=== PATIENT | female | born 1965 | race Caucasian/White ===

== ENCOUNTER 2019-12-14 18:32 | Inpatient (IN) | payer OTHER ==
[~2019-12-14] VITALS: Ht 162.6 cm; Wt 64.0 kg
[~2019-12-14 18:32] MED LIST: ASPI325 PO; ASPI81CH; CYCL10 PO; HYDACE5 PO; HYDMOR2 PO; HYDPAM50 PO; HYDR1TAB94 PO; IBUP600 PO; IBUP800; NAPR500 PO; NAPR550 PO; OXYACE5T PO; PRED20 PO
[2019-12-14 19:13] LABS: Source, Urine Clean Catch
[2019-12-14 19:24] LABS: Bilirubin, Urine Neg (Neg); Blood, Urine 1+ (Neg); Glucose Qualitative, Urine Neg (Neg); Ketones, Urine Neg (Neg); Leukocyte Esterase, Urine Neg (Neg); Nitrite, Urine Neg (Neg); Protein, Urine 1+ (Neg); Specific Gravity, Urine 1.005 (1.003-1.022); Urobilinogen, Urine NORM (Normal)
[2019-12-14 19:30] LABS: Appearance, Urine Clear (Clear); Color, Urine Pale Yellow (P-Yellow)
[2019-12-14 19:33] LABS: Bacteria Not Seen /hpf; Red Blood Cells, Urine Not Seen /hpf (0-2); Squamous Epithelial Cells Rare /hpf (Few); White Blood Cells, Urine Not Seen /hpf (0-5)
[2019-12-14 19:36] LABS: BASOPHILS ABSOLUTE AUTO 0.04 K/mm3 (0.00-0.23); BASOPHILS PERCENT AUTO 0 % (0-2); EOSINOPHILS PERCENT AUTO 0 % (0-6); Hematocrit 44.5 % (33.0-51.0); Hemoglobin 15.5 g/dL (11.5-16.0); IMMATURE GRAN ABSOLUTE AUTO 0.11 K/mm3 (0.00-0.10); IMMATURE GRAN PERCENT AUTO 1 % (0-1); LYMPHOCYTES ABSOLUTE AUTO 0.92 K/mm3 (0.84-5.20); LYMPHOCYTES PERCENT AUTO 5 % (21-46); MONOCYTES ABSOLUTE AUTO 0.92 K/mm3 (0.16-1.47); MONOCYTES PERCENT AUTO 5 % (4-13); Mean Corpuscular HGB 34.9 pg (26.0-34.0); Mean Corpuscular HGB Conc 34.8 g/dL (31.5-36.5); Mean Corpuscular Volume 100 fL (80-100); Mean Platelet Volume 9.6 fL (9.1-12.4); NEUTROPHILS ABSOLUTE AUTO 15.22 K/mm3 (1.96-9.15); NEUTROPHILS PERCENT AUTO 89 % (41-73); Platelet Count 202 K/mm3 (150-400); RDW Coefficient Variation 13.1 % (11.7-14.2); RDW Standard Deviation 48.8 fL (35.1-46.3); Red Blood Cell Count 4.44 M/mm3 (3.80-5.20); White Blood Cell Count 17.21 K/mm3 (4.00-11.30)
[2019-12-14 19:48] LABS: Alanine Aminotransfer (ALT/SGP 34 U/L (12-78); Albumin, Blood 4.1 g/dL (3.4-5.0); Albumin/Globulin Ratio 0.9 (0.8-1.8); Alk Phos 84 U/L (50-136); Anion Gap 5 mmol/L (6-16); Aspartate Aminotrans (AST/SGOT 23 U/L (12-37); Bilirubin, Total 1.5 mg/dL (0.1-1.0); Blood Urea Nitrogen 8 mg/dL (8-24); CO2, Blood 27 mmol/L (21-32); Calcium, Blood 9.8 mg/dL (8.5-10.1); Chloride, Blood 99 mmol/L (98-108); Globulin, Blood 4.8 g/dL (2.2-4.0); Glomerular Filtration Rate >60 (60-); Glucose, Blood 157 mg/dL (70-99); Potassium, Blood 3.3 mmol/L (3.5-5.5); Sodium, Blood 131 mmol/L (136-145); Total Protein, Blood 8.9 g/dL (6.4-8.2)
[2019-12-14 20:55] LABS: Influenza A Negative (NEGATIVE); Influenza B Negative (NEGATIVE)
--- NOTE | 2019-12-15 13:53 | NUR ---
permision of care was given 12/15/2019 at 1320.
--- NOTE | 2019-12-15 14:47 | NUR ---
SHIFT SUMMARY PT A&OX4, VSS. DAT CLEAR LIQUID SIPS. PAIN MANAGED WITH 25 MCGS FENTANYL. AMBULATION INDEPENDENT IN ROOM, TO BRP. VOIDING WELL. PLAN FOR ABX TREATMENT AT THIS TIME. FRIEND AT BEDSIDE. WILL REPORT TO NEXT RN.
--- NOTE | 2019-12-15 20:52 | NUR ---
PT OUT TO SMOKE AT THIS TIME VIA IND AMBULATION
--- NOTE | 2019-12-16 03:58 | NUR ---
SHIFT SUMMARY NO ACUTE CHANGES THIS SHIFT. ABX/IVF RUNNING PER ORDERS. PAIN MANAGED WITH HEAT, REPOSITIONING, AND PER EMAR. IND IN ROOM. AMBULATED IN HALLWAYS AND OUTSIDE. DENIED SMOKING CESS. EDUCATION. APPEARS TO HAVE SLEPT T/O MOST OF SHIFT. IS TOLERATING ICE/WATER, DENIES N/V. IS CURRENTLY RESTING IN BED WITH CALL LIGHT IN REACH. WILL CONT TO MONITOR AND GIVE REPORT TO ONCOMING RN.
[2019-12-16 05:51] LABS: BASOPHILS ABSOLUTE AUTO 0.03 K/mm3 (0.00-0.23); BASOPHILS PERCENT AUTO 0 % (0-2); EOSINOPHILS ABSOLUTE AUTO 0.07 K/mm3 (0.00-0.68); EOSINOPHILS PERCENT AUTO 1 % (0-6); Hematocrit 37.4 % (33.0-51.0); Hemoglobin 12.6 g/dL (11.5-16.0); IMMATURE GRAN ABSOLUTE AUTO 0.04 K/mm3 (0.00-0.10); IMMATURE GRAN PERCENT AUTO 0 % (0-1); LYMPHOCYTES ABSOLUTE AUTO 1.21 K/mm3 (0.84-5.20); LYMPHOCYTES PERCENT AUTO 11 % (21-46); MONOCYTES ABSOLUTE AUTO 1.05 K/mm3 (0.16-1.47); MONOCYTES PERCENT AUTO 10 % (4-13); Mean Corpuscular HGB 34.4 pg (26.0-34.0); Mean Corpuscular HGB Conc 33.7 g/dL (31.5-36.5); Mean Corpuscular Volume 102 fL (80-100); Mean Platelet Volume 10.1 fL (9.1-12.4); NEUTROPHILS ABSOLUTE AUTO 8.64 K/mm3 (1.96-9.15); NEUTROPHILS PERCENT AUTO 78 % (41-73); Platelet Count 208 K/mm3 (150-400); RDW Coefficient Variation 13.3 % (11.7-14.2); RDW Standard Deviation 50.4 fL (35.1-46.3); Red Blood Cell Count 3.66 M/mm3 (3.80-5.20); White Blood Cell Count 11.04 K/mm3 (4.00-11.30)
[2019-12-16 06:03] LABS: Anion Gap 7 mmol/L (6-16); Blood Urea Nitrogen 7 mg/dL (8-24); Bun/Creatinine Ratio 15.9 (12.0-20.0); CO2, Blood 23 mmol/L (21-32); Calcium, Blood 8.9 mg/dL (8.5-10.1); Chloride, Blood 106 mmol/L (98-108); Creatinine, Blood 0.44 mg/dL (0.40-1.00); Glomerular Filtration Rate >60 (60-); Glucose, Blood 84 mg/dL (70-99); Potassium, Blood 3.1 mmol/L (3.5-5.5); Sodium, Blood 136 mmol/L (136-145)
[2019-12-16] MEDS ORDERED: CIPR500 PO (12:09)
[2019-12-16] MEDS ORDERED: Norco 5-325 Ta1 EACH PO (12:10)
[2019-12-16] MEDS ORDERED: METR500 PO (12:10)
[2019-12-16] MEDS ORDERED: ACET325 PO (16:28)
--- NOTE | 2019-12-16 16:53 | NUR ---
1640 discharged to home
== END 2019-12-16 16:40 | disposition home or self-care (01) | DRG 392 ==
LOC: ER 18:32 → ERHOLD 12-15 00:09 → SURS 12-15 11:49
PROVIDERS: Physician Assistant; ADMIT Surgery
DX: K57.20 Diverticulitis of large intestine with perforation and abscess without bleeding (principal); F17.210 Nicotine dependence, cigarettes, uncomplicated; Z88.0 Allergy status to penicillin; Z88.5 Allergy status to narcotic agent
CPT/HCPCS: 36415; 71046; 74177; 80048; 80053; 81001; 83605; 85025; 87040; 87804; 96365; 96375; 96376; 99285-25; A9270-GY; J0744; J1650; J3010; J7030; Q9967

== ENCOUNTER 2019-12-25 10:08 | Observation (INO) | payer OTHER ==
[~2019-12-25] VITALS: Ht 162.6 cm; Wt 62.1 kg
[~2019-12-25 10:08] MED LIST changes: +ACET325 PO; +CIPR500 PO; +METR500 PO; +Norco 5-325 Ta1 EACH PO
[2019-12-25 11:53] LABS: BASOPHILS ABSOLUTE AUTO 0.05 K/mm3 (0.00-0.23); BASOPHILS PERCENT AUTO 0 % (0-2); EOSINOPHILS ABSOLUTE AUTO 0.11 K/mm3 (0.00-0.68); EOSINOPHILS PERCENT AUTO 1 % (0-6); Hematocrit 43.1 % (33.0-51.0); Hemoglobin 14.6 g/dL (11.5-16.0); IMMATURE GRAN ABSOLUTE AUTO 0.08 K/mm3 (0.00-0.10); IMMATURE GRAN PERCENT AUTO 1 % (0-1); LYMPHOCYTES ABSOLUTE AUTO 1.84 K/mm3 (0.84-5.20); LYMPHOCYTES PERCENT AUTO 16 % (21-46); MONOCYTES ABSOLUTE AUTO 0.73 K/mm3 (0.16-1.47); MONOCYTES PERCENT AUTO 7 % (4-13); Mean Corpuscular HGB 33.4 pg (26.0-34.0); Mean Corpuscular HGB Conc 33.9 g/dL (31.5-36.5); Mean Platelet Volume 9.3 fL (9.1-12.4); NEUTROPHILS ABSOLUTE AUTO 8.41 K/mm3 (1.96-9.15); NEUTROPHILS PERCENT AUTO 75 % (41-73); Platelet Count 416 K/mm3 (150-400); RDW Coefficient Variation 13.4 % (11.7-14.2); RDW Standard Deviation 49.2 fL (35.1-46.3); Red Blood Cell Count 4.37 M/mm3 (3.80-5.20); White Blood Cell Count 11.22 K/mm3 (4.00-11.30)
[2019-12-25 11:54] LABS: Mean Corpuscular Volume 99 fL (80-100)
[2019-12-25 12:07] LABS: International Normalized Ratio 1.11; Prothrombin Time Results 11.8 Sec (9.7-11.5)
[2019-12-25 12:10] LABS: Alanine Aminotransfer (ALT/SGP 38 U/L (12-78); Albumin, Blood 3.3 g/dL (3.4-5.0); Albumin/Globulin Ratio 0.7 (0.8-1.8); Alk Phos 69 U/L (50-136); Anion Gap 4 mmol/L (6-16); Aspartate Aminotrans (AST/SGOT 84 U/L (12-37); Bilirubin, Total 0.3 mg/dL (0.1-1.0); Blood Urea Nitrogen 8 mg/dL (8-24); Bun/Creatinine Ratio 15.7 (12.0-20.0); CO2, Blood 32 mmol/L (21-32); Calcium, Blood 9.5 mg/dL (8.5-10.1); Chloride, Blood 102 mmol/L (98-108); Creatinine, Blood 0.51 mg/dL (0.40-1.00); Globulin, Blood 4.9 g/dL (2.2-4.0); Glomerular Filtration Rate >60 (60-); Glucose, Blood 104 mg/dL (70-99); Potassium, Blood 3.4 mmol/L (3.5-5.5); Sodium, Blood 138 mmol/L (136-145); Total Protein, Blood 8.2 g/dL (6.4-8.2)
--- NOTE | 2019-12-25 15:35 | NUR ---
PATIENT SITTING UP IN BED, USING LAPTOP, VERY AGITATED. EXPRESSED ANGER WITH THE FACT THAT SHE IS "IN THIS HELL HOLE WITH NO VIEW AND I CANT GO OUT AND GET ANY FRESH AIR....I CAME IN AT 10 AND DIDNT GET THIS STUFF TO DRINK UNTIL 1230" [CONTRAST.] INFORMED PATIENT OF CURRENT POLICY RE: PATIENTS OUT TO SMOKE AFTER SPEAKING WITH NURSING BURR FILER (IF PATIENT WISHES TO GO OUT, THEY MUST GO AMA AND IF RETURNING, MUST GO THROUGH ER.) I OFFERED TO OBTAIN ORDER FOR NICOTINE PATCH FOR PATIENT TO WHICH SHE REPLIED "I DONT WANT A F NICOTINE PATCH ! I WANT SOME FRESH AIR. YOU ARE PISSING ME OFF!" AT THIS POINT, I DETERMINED NOT TO PERFORM ADMIT ASSESSMENT. COVERING AND LINING SUPERVISOR AND ADMINISTRATIVE PROGRAM SPECIALIST INFORMED. INSTRUCTED PATIENT TO CALL FOR NEEDS. CT SCHEDULED FOR 1630. CONT TO MONITOR.
[2019-12-25] MEDS ORDERED: CIPR500 PO (17:59)
[2019-12-25] MEDS ORDERED: METR500 PO (18:00)
--- NOTE | 2019-12-25 18:09 | NUR ---
DISCHARGE PT THANKFUL FOR DC. IV REMOVED WNL. SCRIPTS FOR ABX GIVEN. PT STATES UNDERSTANDING AND REASONS TO RETURN TO ED. ESCORTED OUT VIA W/C.
== END 2019-12-25 18:11 | disposition home or self-care (01) ==
LOC: ER 10:08 → SURS 10:10 → ER 14:07 → SURS 14:07
PROVIDERS: Physician Assistant; ADMIT Surgery
DX: N82.3 Fistula of vagina to large intestine (principal); F17.200 Nicotine dependence, unspecified, uncomplicated; Z87.19 Personal history of other diseases of the digestive system; Z88.5 Allergy status to narcotic agent
CPT/HCPCS: 36415; 74177; 80053; 85025; 85610; 86850; 86900; 86901; 99284-25; G0378; Q9967

== ENCOUNTER 2020-03-25 11:29 | Inpatient (IN) | payer BC, OTHER ==
[~2020-03-25] VITALS: Ht 162.6 cm; Wt 67.2 kg
[2020-03-28] MEDS ORDERED: IBUP200 PO (13:54)
--- NOTE | 2020-03-30 06:54 | NUR ---
Ambulatory in Day Surgery History, Chart, Medications and Allergies reviewed before start of procedure.Patient confirms NPO status and agrees with scheduled surgery. Patient reports completing Chlorhexadine shower X2 prior to admission to hospital.Surgical site prepped with 2% Chlorhexidine cloth wipe. Lungs clear T/O to Auscultation. PT PERSONAL CRAFT BAG WILL BE TAKEN TO PACU
--- NOTE | 2020-03-30 13:13 | NUR ---
pt arrived to room 227 from pacu s/p sigmoid coloctomy pt stated pain is severe 100/10 pt denies nausea at this time pt has small amt of sang drainage to lower christian wound vac pt is drowsy oriented to room layout
--- NOTE | 2020-03-30 15:17 | NUR ---
DR JAMES OFFICE CALLED PT HAVING ITCHING FROM [employer] ALSO PAIN IS STILL ELEV KPAD PLACED FOR PAIN MESSAGELEFT
--- NOTE | 2020-03-30 16:56 | NUR ---
PT MACHINIST SWITCHED TO DILAUDID PT STILL A 10/10 PT ALSO ITCHING [address] JAMES ALSO ORDERED IV VALIUM IF THIS IS NOT EFFECTIVE FOR ABD MUSCLE SPASM
--- NOTE | 2020-03-30 17:35 | NUR ---
pt stated pain is a little better with the new medication
--- NOTE | 2020-03-30 19:05 | NUR ---
pt stated she is does not take tylenol due to her hx of dario aneurysm placed as a allergy
[2020-03-31 05:26] LABS: BASOPHILS ABSOLUTE AUTO 0.02 K/mm3 (0.00-0.23); BASOPHILS PERCENT AUTO 0 % (0-2); EOSINOPHILS ABSOLUTE AUTO 0.05 K/mm3 (0.00-0.68); EOSINOPHILS PERCENT AUTO 0 % (0-6); Hematocrit 37.3 % (33.0-51.0); Hemoglobin 12.4 g/dL (11.5-16.0); IMMATURE GRAN ABSOLUTE AUTO 0.11 K/mm3 (0.00-0.10); IMMATURE GRAN PERCENT AUTO 1 % (0-1); LYMPHOCYTES ABSOLUTE AUTO 0.32 K/mm3 (0.84-5.20); LYMPHOCYTES PERCENT AUTO 3 % (21-46); MONOCYTES ABSOLUTE AUTO 0.72 K/mm3 (0.16-1.47); MONOCYTES PERCENT AUTO 6 % (4-13); Mean Corpuscular HGB 34.5 pg (26.0-34.0); Mean Corpuscular HGB Conc 33.2 g/dL (31.5-36.5); Mean Corpuscular Volume 104 fL (80-100); Mean Platelet Volume 9.5 fL (9.1-12.4); NEUTROPHILS ABSOLUTE AUTO 10.35 K/mm3 (1.96-9.15); NEUTROPHILS PERCENT AUTO 89 % (41-73); Platelet Count 177 K/mm3 (150-400); RDW Coefficient Variation 14.9 % (11.7-14.2); RDW Standard Deviation 57.3 fL (35.1-46.3); Red Blood Cell Count 3.59 M/mm3 (3.80-5.20); White Blood Cell Count 11.57 K/mm3 (4.00-11.30)
[2020-03-31 05:43] LABS: Anion Gap 5 mmol/L (6-16); Blood Urea Nitrogen 5 mg/dL (8-24); Bun/Creatinine Ratio 7.7 (12.0-20.0); CO2, Blood 27 mmol/L (21-32); Calcium, Blood 8.1 mg/dL (8.5-10.1); Chloride, Blood 103 mmol/L (98-108); Creatinine, Blood 0.65 mg/dL (0.40-1.00); Glomerular Filtration Rate >60 (60-); Glucose, Blood 102 mg/dL (70-99); Potassium, Blood 3.7 mmol/L (3.5-5.5); Sodium, Blood 135 mmol/L (136-145)
--- NOTE | 2020-03-31 06:15 | NUR ---
SHIFT SUMMARY: SHARON IS POD1 FOR A COLECTOMY. VSS, SHE DID HAVE A LOW GRADE FEVER THIS MORNING. SHE WAS UNDER THE IMPRESSION THAT SHE COULD NOT TAKE TYLENOL D/T THE RECOMMENDATION FROM HER NEUROSURGEON TO AVOID NSAIDS. AFTER SOME THOUGHT, SHE WAS AMENDABLE TO TRYING THE TYLENOL. SHE DENIES N/V. SHE REPORTS THE DILAUDID FAST FOOD ATTENDANT IS KEEPING HER PAIN AT A TOLERABLE LEVEL; NO CONTINUOUS RATE, HANDLE ONLY. SHE REMAINS NPO EXCEPT FOR SIPS AND CHIPS. SHE IS A ONE PERSON ASSIST FOR TRANSFERRING TO THE CHAIR. MEPILEX WAS APPLIED TO HER COCCYX D/T BLANCHABLE REDNESS. ARELY TO MIDLINE INCISION. SHE IS USING HER IS. SHE USES HER CALL LIGHT APPROPRIATELY. WILL REPORT TO DAY SHIFT RN.
--- NOTE | 2020-03-31 13:51 | NUR ---
pt itching, slight rash noted on chest. benadryl given per pt request. pt states has allergy to many laundry soaps and feels rash may be from patient gown. pt changed into her own gown from home.
--- NOTE | 2020-03-31 18:06 | NUR ---
SUMMARY PT SITTING IN CHAIR WORKING ON [employer] FOR MUCH OF SHIFT. PT PLAYING CARDS WITH HER AT THIS TIME AND TELLS ME SHE IS GOING TO WALK IN THE [place] IN A BIT. PT REPORTS ABD PAIN WELL CONTROLLED. PT VOIDING CLEAR YELLOW URINE. ARELY DRESSING IN PLACE WITH SMALL AMOUNT DRIED BLOODY DRAINAGE. SLIGHT RASH NOTED TO UPPER CHEST AND UPPER BACK, PT STATES ITCHING LESSENED AFTER REMOVING HOSPITAL GOWN AND DRESSING IN HER PERSONAL CLOTHING
--- NOTE | 2020-04-01 04:25 | NUR ---
SHIFT SUMMARY: SHARON IS A&0X4. POD2 COLECTOMY. VSS, NO ACUTE EVENTS OVERNIGHT. SHE IS TOLERATING CLEARS WELL, DENIES ANY NAUSEA. SHE IS A ONE PERSON STANDBY ASSIST TO THE BATHROOM AND AMBULATED THE HALLWAY EARLY IN THE SHIFT. SHE USES HER CALL LIGHT APPROPRIATELY. SHE IS URINATING WITHOUT DIFFICULTY. SHE STATES THAT SHE FEELS A SIGNIFICANT AMOUNT OF GAS IN HER ABDOMEN, BUT HAS NOT PASSED FLATUS YET. SHE IS TURNING AND REPOSITIONING HERSELF IN BED TO AVOID PRESSURE ON HER TAILBONE. SHE REPORTS ADEQUATE PAIN CONTROL WITH THE DILAUDID OPERATOR ENGINEER. SHE IS LYING IN BED WITH HER CALL LIGHT IN REACH. WILL REPORT TO DAY SHIFT RN.
--- NOTE | 2020-04-01 14:21 | NUR ---
PT SITTING IN CHAIR PLAYING CARDS WITH HER . PT REPORTS PAIN IS ADEQUATELY CONTROLLED WITH PO MEDS. TO SIPS AND CHIPS WITHOUT NAUSEA. REPORT GIVEN TO RANDY MATHEWS RN WHO IS ASSUMING CARE OF PATIENT
--- NOTE | 2020-04-01 15:03 | NUR ---
dr cuevas by to see pt
--- NOTE | 2020-04-01 17:32 | NUR ---
PT VISITING WITH SPOUSE PO TYENOL GIVEN WITH ICE CHIPS AND A LITTLE WATER PT ASKED WHEN THE NEXT PO PAIN MED IS 1821 PT STATED NO ITCHING SINCE SWITCHING OF THE RESOURCE CONSERVATION MANAGER TO ORAL PAIN MEDS
--- NOTE | 2020-04-01 18:38 | NUR ---
pt yoni in hallway again with spouse to see if she could pass some gas belching only
--- NOTE | 2020-04-01 21:47 | NUR ---
I ENTERED PT ROOM TO MEDICATE PT AND SPEAK WITH HER REGARDING HER REQUEST TO WALK OUTSIDE IF HER FRIEND ARRIVES TO VISIT.WITH MY ASSESSMENT,PT KIZZY WAS UPSET WITH RULES REGARDING OUTSIDE AND VISITATION. VERB WAS NOT UPSET WITH STAFF,BUT WAS FRUSTRATED WITH NOT BEING ABLE TO GO HOME TODAY STATES SHE THOUGHT SHE WOULD BE ABLE TO DISCHARGE TODAY.ATTEMPTED THERAPEUTIC CONVERSATION WITH PT AND i ADVISED PT IF FRIEND ARIVED,I WOULD SPEAK WITH SUPERVISER REGARDING POSSIBILITY TO MAKE ANY EXCEPTIONS? I INTERUM SPOKE WITH SUPERVISER AND WAS INSTRUCTED VISITING HOURS END AT 7 PM AND OUTSIDE AMBULATION IS NOT CURRENTLY BEING ALLOWED AND UNFORTUNATELY EXCEPTIONS CANNOT BE MADE. I ENTERED ROOM,NOTED PT ANGRY STATING SHE WAS LEAVING.STATES SHE IS NOT RECEIVING CARE WHEN SHE ASKS. STATES HAD REQUESTED IV BE DISCONNECTED FOR HER TO WALK TO BATHROOM AND COULD NOT WAIT.ENTERTAINER & COMIC HAD CALLED NURSE TO ASK FOR IV TO BE DISCONNECTED, BUT THIS RN WAS WITH ANOTHER PT AT THE TIME, AND THOUGHT THIS WAS REQUESTED FOR UP IN HALLS AND STATED WOULD BE THERE MARCELLUS. I WENT TO ROOM AFTER COMPLETING TASK IN OTHER ROOM AND ENTERTAINER & COMIC WAS OUTSIDE ROOM STATED PT WAS WANTING SL FOR BRP BUT WAS CURRENTLY IN BATHROOM AND DID NOT NEED IV DISCONNECTED ANYMORE.I ADVISED ENTERTAINER & COMIC THAT IT IS NOT USUAL FOR IV TO BE SL FOR BRP. I DISCUSSED THIS WITH PT,SHE STATED SHE WAS BEING DISCONNECTED FROM IV ALL DAY EACH TIME SHE WANTED TO USE BATHROOM.I ATTEMPTED TO DISCUSS WITH PT HER UPSET, WHAT COULD BE DONE AND WHAT HAPPENED? PT UNWILLING TO DISCUSS REFUSING TO STAY STATING SHE IS LEAVING.NURSING SUPERVISER CHINEDU TO ROOM AND HAD AMA FORM SIGNED.I CALLED DR GARCIA TO ADVISE OF SITUATION.HE CONFIRMED PT AMA.PT UNWILLING TO ALLOW REMOVAL OF POWER GLIDE PRIOR TO LEAVING.WHILE SUPER IN ROOM, PT CALLED POLICE TO REPORT WAS NOT BEING ALLOWED TO LEAVE WITHOUT HAVING POWER GLIDE REMOVED.SUPERVISER AND SECURITY IN ROOM PT CONTINUED TO ESCALATE.NURSING SUPERVISER DISCUSSED WITH PT RISKS OF LEAVING AMA AND LEAVING WITH POWER GLIDE.PT WAS ALLOWED TO LEAVE WITH POWER GLILDE INTACT.
--- NOTE | 2020-04-01 22:47 | NUR ---
PT USED THE CALL LIGHT TWO TIMES. BOTH TIMES I ANSWERED IN A TIMELY MANOR. THE FIRST TIME SHE CALLED AND WANTED DICONECTED FROM THE I.V. SO SHE COULD USE HE BATHROOM. I CALLED THE RN AND SHE SAID SHE WOULD BE THERE IN A MOMENT SHE WAS IN ANOTHER ROOM. PT STATED SHE WOULD JUST GO BECAUSE IT WAS MORE PAINFUL TO WAIT. I UNPLUGGED THE I.V. FROM THE WALL AND HELPED HER WITH IT INTO THE BATHROOM. ONCE THERE SHE SAID I'VE GOT IT FROM HERE. I TOLD HER TO CALL IF SHE NEEDED HELP. THE SECOND CALL PT WAS IN BED AND I ENTERED THE ROOM SHE WAS UPSET BECAUSE SHE COULD NOT HEAR HER TELEVISION I ASKED HER IF SHE WOULD LIKE TELEVISION TURNED UP OR FOR ME TO CLOSE THE DOOR. SHE WAS UPSET STATING SHE COULD HEAR EVERYONE GOSSIPING AT THE NURSES STATION. I WENT TO NURSES STATION NO STAFF PRESENT.
[2020-04-04] MEDS ORDERED: Percocet 5-3251 EACH PO (08:23)
== END 2020-04-01 21:55 | disposition left against medical advice (07) | DRG 331 ==
LOC: SURS 03-30 06:05 → PRE IP 03-30 07:30 → SURS 03-30 13:06
PROVIDERS: ADMIT Surgery
PROC: 0DTN0ZZ Resection of Sigmoid Colon, Open Approach (ICD-10-PCS; principal; 2020-03-30 07:30)
DX: N82.3 Fistula of vagina to large intestine (principal)
CPT/HCPCS: 36415; 80048; 85025; 86850; 86900; 86901; 88307; A9270; J0360; J0690; J1100; J1170; J1200; J1650; J2250; J2405; J2704; J3010; J7120; V2790

== ENCOUNTER 2020-03-29 10:39 | Day surgery (SDC) | payer BC, OTHER ==
[~2020-03-29] VITALS: Ht 162.6 cm; Wt 66.3 kg
[~2020-03-29 10:39] MED LIST changes: +IBUP200 PO
--- NOTE | 2020-03-29 11:28 | NUR ---
Ambulatory in Day Surgery. Patient states colon prep results clear. History, Chart, Medications and Allergies reviewed before start of procedure. Lungs clear T/O to Auscultation. Patient confirms NPO status and agrees with scheduled surgery. Pre-Op teaching done. Pt verbalizes understanding. Patient States Post-Procedure ride home has been arranged.
--- NOTE | 2020-03-29 11:48 | NUR ---
03/29/20 1148 Saritha Burrows History, Chart, Medications and Allergies reviewed before start of procedure.PATIENT DETERMINED TO BE ASA APPROPRIATE FOR PROPOFOL SEDATION PRIOR TO START OF PROCEDURE BY .MONITOR INTACT WITH CONTINUOUS PULSE OXIMETRY AND INTERMITTENT BP.3-LEAD EKG REVIEWED WITH PHYSICIAN PRIOR TO START OF PROCEDURE.O2 VIA N/C INTACT THROUGHOUT SEDATION/PROCEDURE.
--- NOTE | 2020-03-29 12:50 | NUR ---
RECIEVED PATIENT AND REPORT VSS PATIENT TEARY DUE TO STRESS OF PROCEDURE AND SURGERY SCHEDULED FOR TOMORR. AFTER TALKING WITH RN AND ASKING DOCTOR QUESTIONS FEEL EDILMAR
--- NOTE | 2020-03-29 13:02 | NUR ---
Discharge instructions reviewed with patient. Patient verbalizes understanding. Copy given to patient to take home. Patient States Post-Procedure ride home has been arranged. Discharged via wheelchair to private car for ride home.
== END 2020-03-29 23:12 | disposition home or self-care (01) ==
LOC: ORSCMMR 10:39 → ORD 12:00 → ORSCMMR 23:12
PROVIDERS: Surgery
PROC: 0DBP8ZX Excision of Rectum, Via Natural or Artificial Opening Endoscopic, Diagnostic (ICD-10-PCS; principal; 2020-03-29 12:00)
DX: K57.32 Diverticulitis of large intestine without perforation or abscess without bleeding (principal); K62.1 Rectal polyp; K64.8 Other hemorrhoids; N82.8 Other female genital tract fistulae; F17.210 Nicotine dependence, cigarettes, uncomplicated; Z79.899 Other long term (current) drug therapy
CPT/HCPCS: 88305; J2704; J7120

== ENCOUNTER 2021-05-04 07:04 | Day surgery (SDC) | payer BC, OTHER ==
[~2021-05-04] VITALS: Ht 162.6 cm; Wt 58.6 kg
[~2021-05-04 07:04] MED LIST changes: +METAMUCIL POWD575 GM PO; +Percocet 5-3251 EACH PO
== END 2021-05-04 08:45 | disposition home or self-care (01) ==
LOC: ORSCSDS 07:04
PROVIDERS: Surgery
PROC: 0DBL8ZX Excision of Transverse Colon, Via Natural or Artificial Opening Endoscopic, Diagnostic (ICD-10-PCS; principal; 2021-05-04 08:00)
DX: Z12.11 Encounter for screening for malignant neoplasm of colon (principal); Z86.010 Personal history of colon polyps; D12.3 Benign neoplasm of transverse colon; F17.210 Nicotine dependence, cigarettes, uncomplicated
CPT/HCPCS: 88305; J2704; J7120

== ENCOUNTER 2021-09-12 12:38 | Day surgery (SDC) | payer BC, OTHER ==
[~2021-09-12] VITALS: Ht 162.6 cm; Wt 63.8 kg
--- NOTE | 2021-09-12 13:38 | NUR ---
Ambulatory in Day Surgery Lungs clear T/O to Auscultation. History, Chart, Medications and Allergies reviewed before start of procedure. Patient confirms NPO status and agrees with scheduled surgery. Pre-Op teaching done. Pt verbalizes understanding. Patient States Post-Procedure ride home has been arranged.
--- NOTE | 2021-09-12 14:32 | NUR ---
09/12/21 1432 LISA BUNCH History, Chart, Medications and Allergies reviewed before start of procedure. 3-LEAD EKG REVIEWED WITH PHYSICIAN PRIOR TO START OF PROCEDURE. MONITOR INTACT WITH CONTINUOUS PULSE OXIMETRY AND INTERMITTENT BP. O2 VIA POM INTACT THROUGHOUT SEDATION/PROCEDURE. PATIENT DETERMINED TO BE ASA APPROPRIATE FOR PROPOFOL SEDATION PRIOR TO START OF PROCEDURE BY DR. JAMES.
--- NOTE | 2021-09-12 15:16 | NUR ---
Patient up to Ambulate independently. Gait steady. Discharge instructions reviewed with patient. Patient verbalizes understanding. Copy given to patient to take home. Discharged via wheelchair to private car for ride home.
== END 2021-09-12 22:47 | disposition home or self-care (01) ==
LOC: ORSCMMR 12:38 → ORD 13:45 → ORSCSDS 13:45 → ORSCMMR 22:47
PROVIDERS: Surgery
PROC: 0DB68ZX Excision of Stomach, Via Natural or Artificial Opening Endoscopic, Diagnostic (ICD-10-PCS; principal; 2021-09-12 13:45)
DX: R10.13 Epigastric pain (principal); B96.81 Helicobacter pylori [H. pylori] as the cause of diseases classified elsewhere; K44.9 Diaphragmatic hernia without obstruction or gangrene; K29.70 Gastritis, unspecified, without bleeding; F17.210 Nicotine dependence, cigarettes, uncomplicated; Z79.899 Other long term (current) drug therapy
CPT/HCPCS: 88305; 88342; J2704; J7120

== ENCOUNTER → 2021-11-08 | Outpatient (CLI) | payer BC, OTHER ==
[~2021-11-08] MED LIST changes: +FLONASE ALLERG9.9 M2; +GABA100 PO; +MELO7.5 PO; +PANT40 PO; +ZYRTEC10 M2 PO
[2021-11-08 15:30] LABS: Osmolality, Urine 361 mos/kg (15-1400)
[2021-11-08 15:50] LABS: Sodium, Urine, Random 46 mmol/L (20-110)
== END ==
LOC: LAB SHORT 11:26
PROVIDERS: Family Medicine
DX: E87.1 Hypo-osmolality and hyponatremia (principal)
CPT/HCPCS: 83935; 84300

== ENCOUNTER 2022-04-17 11:19 | Emergency (ER) | payer BC, OTHER ==
[~2022-04-17] VITALS: Ht 162.6 cm; Wt 73.5 kg
[2022-04-17 12:31] LABS: BASOPHILS ABSOLUTE AUTO 0.05 K/mm3 (0.00-0.23); BASOPHILS PERCENT AUTO 0 % (0-2); EOSINOPHILS ABSOLUTE AUTO 0.08 K/mm3 (0.00-0.68); EOSINOPHILS PERCENT AUTO 1 % (0-6); Hematocrit 39.1 % (33.0-51.0); Hemoglobin 13.7 g/dL (11.5-16.0); IMMATURE GRAN ABSOLUTE AUTO 0.05 K/mm3 (0.00-0.10); IMMATURE GRAN PERCENT AUTO 0 % (0-1); LYMPHOCYTES ABSOLUTE AUTO 1.54 K/mm3 (0.84-5.20); LYMPHOCYTES PERCENT AUTO 13 % (21-46); MONOCYTES ABSOLUTE AUTO 1.36 K/mm3 (0.16-1.47); MONOCYTES PERCENT AUTO 12 % (4-13); Mean Corpuscular HGB 32.9 pg (26.0-34.0); Mean Corpuscular Volume 94 fL (80-100); Mean Platelet Volume 11.1 fL (9.1-12.4); NEUTROPHILS PERCENT AUTO 74 % (41-73); Platelet Count 338 K/mm3 (150-400); RDW Coefficient Variation 13.4 % (11.7-14.2); RDW Standard Deviation 46.1 fL (35.1-46.3); Red Blood Cell Count 4.17 M/mm3 (3.80-5.20); White Blood Cell Count 11.78 K/mm3 (4.00-11.30)
[2022-04-17 13:18] LABS: Albumin, Blood 3.7 g/dL (3.4-5.0); Albumin/Globulin Ratio 0.7 (0.8-1.8); Bilirubin, Total 1.4 mg/dL (0.1-1.0); Bun/Creatinine Ratio 23.1 (12.0-20.0); Calcium, Blood 9.9 mg/dL (8.5-10.1); Creatinine, Blood 0.82 mg/dL (0.40-1.00); Globulin, Blood 5.2 g/dL (2.2-4.0); Magnesium, Blood 2.2 mg/dL (1.6-2.4); Potassium, Blood 3.6 mmol/L (3.5-5.5); Total Protein, Blood 8.9 g/dL (6.4-8.2)
== END 2022-04-17 14:57 | disposition home or self-care (01) ==
LOC: ER 11:19
PROVIDERS: Physician Assistant
DX: U07.1 COVID-19 (principal); F17.210 Nicotine dependence, cigarettes, uncomplicated; Z79.899 Other long term (current) drug therapy; Z88.0 Allergy status to penicillin; Z88.5 Allergy status to narcotic agent; Z88.8 Allergy status to other drugs, medicaments and biological substances
CPT/HCPCS: 36415; 71045; 80053; 83735; 85025; 99283-25

== ENCOUNTER 2023-01-26 16:39 | Emergency (ER) | payer BC, OTHER ==
[~2023-01-26] VITALS: Ht 167.6 cm; Wt 72.6 kg
[2023-01-26 16:43] VITALS: BP 170/90
[2023-01-26] MEDS ORDERED: LIDO700A20 TOP (17:46)
== END 2023-01-26 17:57 | disposition home or self-care (01) ==
LOC: ER 16:39
DX: M54.6 Pain in thoracic spine (principal); Z88.0 Allergy status to penicillin; Z88.2 Allergy status to sulfonamides; Z88.5 Allergy status to narcotic agent; Z88.6 Allergy status to analgesic agent; Z79.899 Other long term (current) drug therapy; F17.210 Nicotine dependence, cigarettes, uncomplicated
CPT/HCPCS: 72100; 96372; 99283-25; A9270; J1885

== ENCOUNTER 2023-07-10 15:21 | Emergency (ER) | payer BC, OTHER ==
[~2023-07-10] VITALS: Ht 162.6 cm; Wt 70.3 kg
[~2023-07-10 15:21] MED LIST changes: +LIDO700A20 TOP
[2023-07-10] MEDS ORDERED: GABAPENTIN600 MG PO (15:55)
[2023-07-10] MEDS ORDERED: MELO7.5 PO (15:56)
[2023-07-10] MEDS ORDERED: FOLI1 PO (15:57)
[2023-07-10] MEDS ORDERED: Norco 5-325 Ta1 EACH PO (16:31)
[2023-07-10 16:51] VITALS: BP 152/85
== END 2023-07-10 16:54 | disposition home or self-care (01) ==
LOC: ER 15:21
DX: M54.42 Lumbago with sciatica, left side (principal); G89.29 Other chronic pain; F17.210 Nicotine dependence, cigarettes, uncomplicated; Z88.0 Allergy status to penicillin; Z88.2 Allergy status to sulfonamides; Z88.5 Allergy status to narcotic agent; Z88.6 Allergy status to analgesic agent; Z79.899 Other long term (current) drug therapy
CPT/HCPCS: 99283; A9270

== ENCOUNTER 2024-06-15 18:39 | Emergency (ER) | payer BC, OTHER ==
[~2024-06-15] VITALS: Ht 162.6 cm; Wt 68.0 kg
[~2024-06-15 18:39] MED LIST changes: +ACET500 PO; +BACTRIM DS TAB1 EAC6 PO; +Bupropion HCl75 MG; +CETI5; +Cleocin HCl150 MG PO; +FOLI1 PO; +Flonase 0.05% N16 GM; +GABAPENTIN600 MG PO; +METAMUCIL POWD798 GM PO; +Zofran4 MG PO
[2024-06-15 19:03] LABS: BASOPHILS ABSOLUTE AUTO 0.05 K/mm3 (0.00-0.23); BASOPHILS PERCENT AUTO 0 % (0-2); EOSINOPHILS ABSOLUTE AUTO 0.06 K/mm3 (0.00-0.68); EOSINOPHILS PERCENT AUTO 1 % (0-6); Hemoglobin 14.1 g/dL (11.5-16.0); IMMATURE GRAN ABSOLUTE AUTO 0.05 K/mm3 (0.00-0.10); IMMATURE GRAN PERCENT AUTO 0 % (0-1); LYMPHOCYTES ABSOLUTE AUTO 1.31 K/mm3 (0.84-5.20); LYMPHOCYTES PERCENT AUTO 12 % (21-46); MONOCYTES ABSOLUTE AUTO 0.73 K/mm3 (0.16-1.47); MONOCYTES PERCENT AUTO 6 % (4-13); Mean Corpuscular HGB 36.8 pg (26.0-34.0); Mean Corpuscular HGB Conc 34.4 g/dL (31.5-36.5); Mean Corpuscular Volume 107 fL (80-100); Mean Platelet Volume 8.8 fL (9.1-12.4); NEUTROPHILS ABSOLUTE AUTO 9.14 K/mm3 (1.96-9.15); NEUTROPHILS PERCENT AUTO 81 % (41-73); Platelet Count 203 K/mm3 (150-400); RDW Coefficient Variation 13.6 % (11.7-14.2); RDW Standard Deviation 53.3 fL (35.1-46.3); Red Blood Cell Count 3.83 M/mm3 (3.80-5.20); White Blood Cell Count 11.34 K/mm3 (4.00-11.30)
[2024-06-15 19:04] LABS: Source, Urine Clean Catch
[2024-06-15 19:15] LABS: Appearance, Urine Clear (Clear); Bilirubin, Urine Neg (Neg); Blood, Urine Neg (Neg); Color, Urine Yellow (P-Yellow); Glucose Qualitative, Urine Neg (Neg); Ketones, Urine Neg (Neg); Leukocyte Esterase, Urine Neg (Neg); Nitrite, Urine Neg (Neg); Protein, Urine 1+ (Neg); Urobilinogen, Urine NORM (Normal)
[2024-06-15 19:25] LABS: Albumin, Blood 4.4 g/dL (3.4-5.0); Albumin/Globulin Ratio 0.9 (0.8-1.8); Bun/Creatinine Ratio 18.4 (12.0-20.0); Creatinine, Blood 0.65 mg/dL (0.40-1.00); Globulin, Blood 4.7 g/dL (2.2-4.0); Potassium, Blood 3.9 mmol/L (3.5-5.5); Total Protein, Blood 9.1 g/dL (6.4-8.2)
[2024-06-16] MEDS ORDERED: Prochlorperazine Edisylate 10 mg Vial IV ONE (00:10)
[2024-06-16] MEDS ORDERED: Ketorolac Tromethamine 30mg Vial IV ONE (00:10)
[2024-06-16] MEDS ORDERED: Lactated Ringer's 1,000 ML IV SCH (00:10)
[2024-06-16] MEDS ORDERED: FentaNYL Citrate 50 MCG/ML 2 ML Injection IV ONE (00:55)
[2024-06-16] MEDS ORDERED: ONDA4ODT MM (03:55)
[2024-06-16 04:00] VITALS: BP 186/96
== END 2024-06-16 04:10 | disposition home or self-care (01) ==
LOC: ER 18:39
PROVIDERS: Student in an Organized Health Care Education/Training Program
DX: K85.20 Alcohol induced acute pancreatitis without necrosis or infection (principal); E86.0 Dehydration; F17.210 Nicotine dependence, cigarettes, uncomplicated; Z88.0 Allergy status to penicillin; Z88.5 Allergy status to narcotic agent; Z88.6 Allergy status to analgesic agent; Z88.2 Allergy status to sulfonamides; Z79.899 Other long term (current) drug therapy
CPT/HCPCS: 76705; 80053; 83690; 84484; 85025; J0780; J1885; J3010; J7120

== ENCOUNTER 2024-07-08 17:51 | Inpatient (IN) | payer BC, OTHER ==
[~2024-07-08] VITALS: Ht 162.6 cm; Wt 67.0 kg
[~2024-07-08 17:51] MED LIST changes: +MOBIC15 MG PO; +ONDA4ODT MM
[2024-07-08 18:55] LABS: BASOPHILS ABSOLUTE AUTO 0.08 K/mm3 (0.00-0.23); BASOPHILS PERCENT AUTO 1 % (0-2); EOSINOPHILS PERCENT AUTO 1 % (0-6); Hematocrit 40.5 % (33.0-51.0); Hemoglobin 13.4 g/dL (11.5-16.0); IMMATURE GRAN ABSOLUTE AUTO 0.08 K/mm3 (0.00-0.10); IMMATURE GRAN PERCENT AUTO 1 % (0-1); LYMPHOCYTES ABSOLUTE AUTO 2.21 K/mm3 (0.84-5.20); LYMPHOCYTES PERCENT AUTO 15 % (21-46); MONOCYTES ABSOLUTE AUTO 0.99 K/mm3 (0.16-1.47); MONOCYTES PERCENT AUTO 7 % (4-13); Mean Corpuscular HGB 34.2 pg (26.0-34.0); Mean Corpuscular HGB Conc 33.1 g/dL (31.5-36.5); Mean Corpuscular Volume 103 fL (80-100); Mean Platelet Volume 9.5 fL (9.1-12.4); NEUTROPHILS ABSOLUTE AUTO 11.63 K/mm3 (1.96-9.15); NEUTROPHILS PERCENT AUTO 77 % (41-73); Platelet Count 329 K/mm3 (150-400); RDW Coefficient Variation 14.3 % (11.7-14.2); RDW Standard Deviation 54.4 fL (35.1-46.3); Red Blood Cell Count 3.92 M/mm3 (3.80-5.20); White Blood Cell Count 15.19 K/mm3 (4.00-11.30)
[2024-07-08 19:24] LABS: Albumin, Blood 3.3 g/dL (3.4-5.0); Albumin/Globulin Ratio 0.5 (0.8-1.8); Bilirubin, Total 0.5 mg/dL (0.1-1.0); Bun/Creatinine Ratio 20.1 (12.0-20.0); Calcium, Blood 10.2 mg/dL (8.5-10.1); Creatinine, Blood 0.7 mg/dL (0.40-1.00); Globulin, Blood 6.1 g/dL (2.2-4.0); Potassium, Blood 3.9 mmol/L (3.5-5.5); Total Protein, Blood 9.4 g/dL (6.4-8.2)
[2024-07-08] MEDS ORDERED: IBUP200 PO (20:54)
[2024-07-08] MEDS ORDERED: ZYRTEC10 M2 PO (20:55)
[2024-07-08] MEDS ORDERED: Clindamycin 600mg in D5W 50 ML IV ONE (22:50)
[2024-07-08] MEDS ORDERED: Ketorolac Tromethamine 30mg Vial IV ONE (22:55)
[2024-07-08] MEDS ORDERED: NS 1,000 ML IV SCH (22:55)
[2024-07-08] MEDS ORDERED: FentaNYL Citrate 50 MCG/ML 2 ML Injection IV PRN (23:00)
[2024-07-08] MEDS ORDERED: Vancomycin HCL 1,500 MG in NS 250 ML IV ONE (23:20)
[2024-07-08 23:26] LABS: Source, Urine Clean Catch
[2024-07-08 23:32] LABS: Bilirubin, Urine Neg (Neg); Blood, Urine Neg (Neg); Glucose Qualitative, Urine Neg (Neg); Ketones, Urine Neg (Neg); Leukocyte Esterase, Urine Neg (Neg); Nitrite, Urine Neg (Neg); Protein, Urine 1+ (Neg); Specific Gravity, Urine 1.015 (1.003-1.022); Urobilinogen, Urine NORM (Normal)
[2024-07-08 23:41] LABS: Appearance, Urine Clear (Clear); Color, Urine Yellow (P-Yellow)
[2024-07-09] VITALS (14 sets, daily range): BP systolic 127–172; BP diastolic 60–98
[2024-07-09] MEDS ORDERED: FLU VACC TS2024-25(6MOS UP)/PF 45 MCG/0.5 ML SYRINGE IM ONE (00:15)
[2024-07-09] MEDS ORDERED: FentaNYL Citrate 50 MCG/ML 2 ML Injection IV PRN (00:15)
[2024-07-09] MEDS ORDERED: Prochlorperazine Edisylate 10 mg Vial IV PRN (00:20)
[2024-07-09] MEDS ORDERED: Ondansetron HCl 2 MG / ML 2ML Vial IV PRN (00:20)
[2024-07-09] MEDS ORDERED: Acetaminophen 325 MG TABLET PO PRN (00:20)
[2024-07-09] MEDS ORDERED: Lactated Ringer's 1,000 ML IV SCH ×2 (01:00→12:25)
--- NOTE | 2024-07-09 04:07 | NUR ---
ADMIT NOTE: PT ARRIVED FROM ER AT 0220 VIA W/C. PT ALERT ORIENTED X4 BUT CAN BE ANGRY AND RESISTIVE TO CARE AT TIMES. PT SKIN CHECK DONE WITH NO SKIN CONCERNS EXCEPT SLIGHT REDNESS TO LT BREAST R/T ABCESS. PT WAS ORIENTED TO ROOM AND EQUIPMENT. PT REFUSED TO HAVE HER BUTTOCKS LOOKED AT AND STATED DO NOT BOTHER ME ANYMORE I DONT HAVE ANYTHING. PT REMAINS NPO. CONSULT HAS BEEN CALLED TO DR. JAMES. PT RESTING IN BED AT THIS TIME
--- NOTE | 2024-07-09 04:40 | NUR ---
SHIFT SUMMARY: PT ADMITTED AT 0220 WITH DX OF LT BREAST ABCESS AND PANCREATITIS. PT ALERT ORIENTED X 4 BUT CAN GET ANGRY AND ANXIOUS AT TIMES. C/O PAIN TO LT BREAST MEDICATED WITH FENTANYL. SHES NPO AT THIS TIME PENDING A CONSULT FROM DR. JAMES R/T LT BREAST. CONSULT WAS CALLED IN MINISTER HELPER. LT BREAST IS PAINFUL TO TOUCH AND SLIGHTLY REDDENED. SHE REQUIRES SBA TO GET UP TO BATHROOM. BP ON ADMIT WAS 172/83 DUE TO PT BEING ANGRY BUT RECHECK WAS 140/72. PT RESTING IN BED AT THIS TIME
[2024-07-09] MEDS ORDERED: Clindamycin 600mg in D5W 50 ML IV SCH (08:00)
[2024-07-09] MEDS ORDERED: Docusate Sodium 100 MG Cap PO SCH (09:00)
[2024-07-09] MEDS ORDERED: Lactobacil 2-S.Thermo-Bifido 1 1 Cap PO SCH (09:00)
[2024-07-09] MEDS ORDERED: Nicotine 21 MG PATCH TOP SCH (10:00)
[2024-07-09] MEDS ORDERED: OxyCODONE HCL 5 MG TAB PO PRN (10:05)
[2024-07-09] MEDS ORDERED: Vancomycin HCL 1,000 MG in NS 250 ML IV SCH (11:00)
[2024-07-09] MEDS ORDERED: Phenergan25 M1 PO (11:02)
[2024-07-09] MEDS ORDERED: GABAPENTIN600 MG PO ×2 (11:54)
[2024-07-09 11:56] LABS: BASOPHILS ABSOLUTE AUTO 0.06 K/mm3 (0.00-0.23); BASOPHILS PERCENT AUTO 0 % (0-2); EOSINOPHILS ABSOLUTE AUTO 0.24 K/mm3 (0.00-0.68); EOSINOPHILS PERCENT AUTO 2 % (0-6); Hematocrit 34.5 % (33.0-51.0); Hemoglobin 11.6 g/dL (11.5-16.0); IMMATURE GRAN ABSOLUTE AUTO 0.07 K/mm3 (0.00-0.10); IMMATURE GRAN PERCENT AUTO 1 % (0-1); LYMPHOCYTES ABSOLUTE AUTO 2.03 K/mm3 (0.84-5.20); LYMPHOCYTES PERCENT AUTO 15 % (21-46); MONOCYTES ABSOLUTE AUTO 1.29 K/mm3 (0.16-1.47); MONOCYTES PERCENT AUTO 9 % (4-13); Mean Corpuscular HGB 34.4 pg (26.0-34.0); Mean Corpuscular HGB Conc 33.6 g/dL (31.5-36.5); Mean Corpuscular Volume 102 fL (80-100); Mean Platelet Volume 9.4 fL (9.1-12.4); NEUTROPHILS ABSOLUTE AUTO 10.02 K/mm3 (1.96-9.15); NEUTROPHILS PERCENT AUTO 73 % (41-73); Platelet Count 281 K/mm3 (150-400); RDW Coefficient Variation 14.1 % (11.7-14.2); RDW Standard Deviation 53.3 fL (35.1-46.3); Red Blood Cell Count 3.37 M/mm3 (3.80-5.20); White Blood Cell Count 13.71 K/mm3 (4.00-11.30)
[2024-07-09 12:40] LABS: Albumin, Blood 2.9 g/dL (3.4-5.0); Albumin/Globulin Ratio 0.6 (0.8-1.8); Bilirubin, Total 0.9 mg/dL (0.1-1.0); Bun/Creatinine Ratio 18.7 (12.0-20.0); Calcium, Blood 9.6 mg/dL (8.5-10.1); Creatinine, Blood 0.7 mg/dL (0.40-1.00); Globulin, Blood 5.2 g/dL (2.2-4.0); Potassium, Blood 4.1 mmol/L (3.5-5.5); Total Protein, Blood 8.1 g/dL (6.4-8.2)
[2024-07-09 12:45] LABS: Magnesium, Blood 1.1 mg/dL (1.6-2.4)
[2024-07-09] MEDS ORDERED: Magnesium Sulf 2 GM/Water 50ML 50 ML IV ONE (13:00)
[2024-07-09] MEDS ORDERED: NS 250 ML IV SCH (13:20)
--- NOTE | 2024-07-09 14:45 | NUR ---
THIS RN AT BEDSIDE TO OBTAIN IV ACCESS. PT HAS #20 PIV TO RAC THAT IS POSITIONAL, AND CURRENTLY INFUSING MAGNESIUM REPLETION. PT LEFT SIDE IS THE SURGICAL SITE, THEREFORE, THIS RN APPLIED TORNIQUET AND DID NOT SEE VENOUS ACCESS READILY AVAILABLE. PT STATES "THEY HAVE POKED ME SO MANY TIMES FOR AN IV." THIS RN ASKED IF PT HAD EVER HAD AN IV PLACED WITH ULTRASOUND OR A PICC LINE. PT STATES "YES, I HAVE." DISCUSSED WITH PT THE OPTION OF OBTAINING AN EXTENDED DWELL CATHETER SHE IS ON VANCO AND CLEOCIN. PT STATES "OK, I KNOW WHAT THAT IS I'VE HAD IT BEFORE." WHEN APPLYING THE STERILE DRAPE FOR THE POWERGLIDE ST PT STATED "I DON'T KNOW WHAT'S GOING ON HERE." THIS RN REMINDED PT OF THE DISCUSSION WE HAD PRIOR TO POWEGLIDE PLACEMENT. PT STATED "I DON'T KNOW WHAT IS GOING ON! I JUST HURT SO BAD! JUST DO IT SO I CAN GET SOME PAIN MEDICINE." PT RATES HER LEFT BREAST PAIN GREATER THAN 10/10 STATING "10 ISN'T ENOUGH." WHEN THREADING THE GUIDEWIRE, PT BECAME EXTREMELY ANXIOUS AND INSISTED THAT RN "STOP" PROCEDURE. REQUEST GRANTED. CHARLIE, RN SPOKE WITH ANESTHESIA PROVIDER REQUESTING PAIN MEDICATION.
[2024-07-09] MEDS ORDERED: FentaNYL Citrate 50 MCG/ML 2 ML Injection IV ONE (14:55)
[2024-07-09] MEDS ORDERED: Ipratropium/Albuterol SulF 2.5-0.5MG/3 ML Amp INH ONE (14:55)
[2024-07-09] MEDS ORDERED: Bupivacaine 0.5% HCl 5 MG/ML 30MLVIAL ONE (15:27)
[2024-07-09] MEDS ORDERED: propofoL 20 ML IV ONE (15:41)
[2024-07-09] MEDS ORDERED: HYDROmorphone HCl/Pf 1MG SYR ONE ×2 (15:49→16:26)
[2024-07-09] MEDS ORDERED: FentaNYL Citrate 50 MCG/ML 2 ML Injection ONE (16:12)
[2024-07-09] MEDS ORDERED: HYDROcodone 5-APAP 325 TAB PO PRN (16:20)
[2024-07-09] MEDS ORDERED: Ondansetron HCl 2 MG / ML 2ML Vial ONE (16:43)
--- NOTE | 2024-07-09 17:50 | NUR ---
PATIENT RETURNED FROM OR. STATED SHE WILL BE LEAVING, WITH OR WITHOUT AN ORDER. CALL TO DR. BARRETT WHO STATED HE DOES NOT FEEL COMFORTABLE DISCHARGING HER, BEING THAT SHE HAS HAD SO MANY IV NARCOTICS. PATIENT NOTIFIED. SHE WILL WAIT FOR AWHILE AND DISCUSS IT WITH HER .
--- NOTE | 2024-07-09 19:37 | NUR ---
DAY SHIFT SUMMARY A&Ox4. UNCOOPERATIVE WITH MOST CARE. ONE DOSE OF ABT RECEIVED TODAY AND HAS NOT WANTED TO BE HOOKED TO IV SINCE THEN. I&D COMPLETED IN OR TODAY. APPARENTLY THERE WAS AN ATTEMPT AT A POWERGLIDE INSERTION IN RUE OF WHICH SHE DEMANDED CESSATION OF PROCEDURE DUE TO INABILITY TO TOLERATE. HAS LEFT ROOM TWICE TODAY; ONCE STATING SHE WAS WALKING AROUND UNIT AND SECOND TIME LEFT DURING SHIFT CHANGE AND WAS REPORTEDLY OUTSIDE SMOKING. REMINDED OF [facility]'S NONSMOKING POLICY. CHARGE NOTIFIED. SBA c AMBULATION DUE TO PAIN MEDS. REPORT TO ONCOMING RN.
[2024-07-10 02:59] VITALS: BP 119/70
--- NOTE | 2024-07-10 03:42 | NUR ---
SHIFT SUMMARY: PT ALERT ORIENTED X 4. CAN GET IRATE AND NONCOMPLIANT WITH CARE. WENT OUTSIDE AT THE BEGINNING OF THE SHIFT TO SMOKE EVEN AFTER BEING TOLD SEVERAL TIMES NOT TO GO OUT. S/P I&D OF LT BREAST. DRESSING INTACT WITH NO DRAINAGE. C/O PAIN TO AREA. MEDICATED WITH NORCO AND OXY WITH GOOD RELIEF. NO C/O NAUSEA THIS SHIFT. GETS UP TO BATHROOM AD TIA. IV WAS LEAKING TO HER RT FA. IT WAS REMOVED AND A NEW IV WAS STARTED IN HER RT WRIST. IV IS NOW SL. REMAINS ON VANCO AND CLINDAMYCIN. PT HAS BEEN UP MOST OF THIS SHIFT. VSS. SHES DUE FOR A VANCO TROUGH TODAY AT 1000. SITTING IN BED DOING HER STITCHING AT THIS TIME.
[2024-07-10 05:46] LABS: BASOPHILS ABSOLUTE AUTO 0.03 K/mm3 (0.00-0.23); BASOPHILS PERCENT AUTO 0 % (0-2); EOSINOPHILS ABSOLUTE AUTO 0.01 K/mm3 (0.00-0.68); EOSINOPHILS PERCENT AUTO 0 % (0-6); Hematocrit 35.8 % (33.0-51.0); Hemoglobin 11.8 g/dL (11.5-16.0); IMMATURE GRAN ABSOLUTE AUTO 0.03 K/mm3 (0.00-0.10); IMMATURE GRAN PERCENT AUTO 0 % (0-1); LYMPHOCYTES ABSOLUTE AUTO 1.21 K/mm3 (0.84-5.20); LYMPHOCYTES PERCENT AUTO 11 % (21-46); MONOCYTES ABSOLUTE AUTO 0.31 K/mm3 (0.16-1.47); MONOCYTES PERCENT AUTO 3 % (4-13); Mean Corpuscular HGB 33.8 pg (26.0-34.0); Mean Corpuscular Volume 103 fL (80-100); Mean Platelet Volume 10.4 fL (9.1-12.4); NEUTROPHILS ABSOLUTE AUTO 9.31 K/mm3 (1.96-9.15); NEUTROPHILS PERCENT AUTO 85 % (41-73); Platelet Count 279 K/mm3 (150-400); RDW Coefficient Variation 13.9 % (11.7-14.2); RDW Standard Deviation 52.4 fL (35.1-46.3); Red Blood Cell Count 3.49 M/mm3 (3.80-5.20)
[2024-07-10 06:08] LABS: Albumin, Blood 2.9 g/dL (3.4-5.0); Albumin/Globulin Ratio 0.5 (0.8-1.8); Bilirubin, Total 0.5 mg/dL (0.1-1.0); Bun/Creatinine Ratio 20.6 (12.0-20.0); Calcium, Blood 9.3 mg/dL (8.5-10.1); Creatinine, Blood 0.63 mg/dL (0.40-1.00); Globulin, Blood 5.6 g/dL (2.2-4.0); Magnesium, Blood 1.7 mg/dL (1.6-2.4); Potassium, Blood 4.7 mmol/L (3.5-5.5); Total Protein, Blood 8.5 g/dL (6.4-8.2)
[2024-07-10 07:33] VITALS: BP 137/74
[2024-07-10] MEDS ORDERED: VISBIOME 112.51 EACH PO (09:48)
[2024-07-10] MEDS ORDERED: CLIN150 PO (09:48)
--- NOTE | 2024-07-10 09:55 | NUR ---
DISCHARGE NOTE MS TENORIO HAS AN APPOINTMENT WITH HER PCP THIS AM. DISCHARGED HOME AT 0955, PT VERBALISED UNDERSTANDING OF DISCHARGE INSTRUCTIONS (WRITTEN AND VERBAL) AND AMBULATED FROM MEDICAL UNIT AT 0955. FRIEND HERE TO DRIVE HER HOME. SHE TOOK OXY THIS AM WITH SOME RELIEF. NO NAUSEA. NO NEW CONCERNS AT TIME OF DISCHARGE. AMBULATING WITH STEADY GAIT. DRESSING TO LEFT BREAST HAS SMALL 2CM X 1CM AREA OF DRIED BLOOD BELOW THE DRESSING, NO NEW DRAINAGE AND DRESSING HAS LOOKED LIKE THIS SINCE 07/09 PER PT REPORT.
== END 2024-07-10 09:53 | disposition home or self-care (01) | DRG 584 ==
LOC: ER 17:51 → MEDS 07-09 00:14 → SURS 07-09 00:14 → MEDS 07-09 02:20
PROVIDERS: Emergency Medicine; Surgery; ADMIT Student in an Organized Health Care Education/Training Program
PROC: 0H9U0ZZ Drainage of Left Breast, Open Approach (ICD-10-PCS; principal; 2024-07-09 12:30)
DX: N61.1 Abscess of the breast and nipple (principal); K85.20 Alcohol induced acute pancreatitis without necrosis or infection; F17.210 Nicotine dependence, cigarettes, uncomplicated; M54.9 Dorsalgia, unspecified; G89.29 Other chronic pain; F10.10 Alcohol abuse, uncomplicated; E86.0 Dehydration; Z98.890 Other specified postprocedural states; Z87.19 Personal history of other diseases of the digestive system; Z90.49 Acquired absence of other specified parts of digestive tract; Z90.710 Acquired absence of both cervix and uterus; Z88.0 Allergy status to penicillin; Z88.2 Allergy status to sulfonamides; Z88.8 Allergy status to other drugs, medicaments and biological substances; Z79.899 Other long term (current) drug therapy
CPT/HCPCS: 36415; 76604; 80053; 82947; 83036; 83605; 83690; 83735; 85025; 87040; 87070; 87075; 87077; 87186; 87205; 96365; 96368; 96375; 99284-25; A9270; C1751; J1170; J1885; J2405; J2704; J3010; J3370; J3475; J7030; J7040; J7050; J7120

== ENCOUNTER 2024-08-10 11:53 | Day surgery (SDC) | payer BC, OTHER ==
[~2024-08-10] VITALS: Ht 162.6 cm; Wt 67.2 kg
[~2024-08-10 11:53] MED LIST changes: +CLIN150 PO; +Phenergan25 M1 PO; +VISBIOME 112.51 EACH PO
[2024-08-10] MEDS ORDERED: Lactated Ringer's 1,000 ML IV ONE ×2 (12:06→12:42)
[2024-08-10] MEDS ORDERED: Clindamycin 900mg in D5W 50ML 50 ML IV ONE (12:06)
[2024-08-10] MEDS ORDERED: propofoL 20 ML IV ONE (13:29)
[2024-08-10] MEDS ORDERED: FentaNYL Citrate 50 MCG/ML 2 ML Injection ONE (13:29)
[2024-08-10] MEDS ORDERED: Ipratropium/Albuterol SulF 2.5-0.5MG/3 ML Amp ONE (13:49)
--- NOTE | 2024-08-10 13:54 | NUR ---
08/10/24 Yanet4 Rachel Rangel NEB PER DR. SCHUMACHER, INSPIRATORY WHEEZES THROUGHOUT
[2024-08-10] MEDS ORDERED: Bupivacaine 0.5% HCl 5 MG/ML 30MLVIAL INJ ONE (14:29)
[2024-08-10 15:27] VITALS: BP 155/89
[2024-08-10] MEDS ORDERED: HYDROcodone 5-APAP 325 TAB ONE (15:33)
== END 2024-08-10 16:15 | disposition home or self-care (01) ==
LOC: ORSCSDS 11:53
PROVIDERS: Surgery
PROC: 0HBU0ZX Excision of Left Breast, Open Approach, Diagnostic (ICD-10-PCS; principal; 2024-08-10 13:15)
DX: N61.1 Abscess of the breast and nipple (principal); J45.909 Unspecified asthma, uncomplicated; Z86.73 Personal history of transient ischemic attack (TIA), and cerebral infarction without residual deficits; F17.210 Nicotine dependence, cigarettes, uncomplicated; Z79.899 Other long term (current) drug therapy
CPT/HCPCS: 88305; A9270; J2704; J3010; J7120

== ENCOUNTER → 2025-06-17 | Outpatient (CLI) | payer BC, OTHER ==
[2025-06-22 18:02] LABS: ALBUMIN %,URINE 100.0 %; ALPHA-1 %,URINE 0.0 %; ALPHA-2 %,URINE 0.0 %; BETA GLOBULIN %,URINE 0.0 %; GAMMA GLOBULIN %,URINE 0.0 %; HOURS COLLECTED 24 hr; PARAPROTEIN %,URINE 0.0 %; PARAPROTEIN EXCRETION/24 HOUR 0.0
== END ==
LOC: LAB SHORT 06:45 → LAB 06:45
PROVIDERS: Family Medicine
DX: D47.2 Monoclonal gammopathy (principal)
CPT/HCPCS: 81050; 84156; 84166; 86335

== ENCOUNTER 2025-08-04 08:34 | Day surgery (SDC) | payer BC, OTHER ==
[~2025-08-04] VITALS: Ht 162.6 cm; Wt 79.0 kg
[~2025-08-04 08:34] MED LIST changes: +Crestor40 MG; +DULO60 PO; +MONT10T; +PREG150 PO; +Prednisone10 MG PO
[2025-08-04 10:14] VITALS: BP 124/85
== END 2025-08-04 10:12 | disposition home or self-care (01) ==
LOC: ORSCSDS 08:34
PROVIDERS: Internal Medicine Gastroenterology
PROC: 0DJ08ZZ Inspection of Upper Intestinal Tract, Via Natural or Artificial Opening Endoscopic (ICD-10-PCS; principal; 2025-08-04 11:15)
DX: K74.60 Unspecified cirrhosis of liver (principal); E78.5 Hyperlipidemia, unspecified; F10.10 Alcohol abuse, uncomplicated; Z79.899 Other long term (current) drug therapy; F17.210 Nicotine dependence, cigarettes, uncomplicated
CPT/HCPCS: J2704; J7120